=== PATIENT | female | born 1970 | race Hispanic/Latino ===

== ENCOUNTER 2017-08-05 18:58 | Emergency (ER) | payer BC ==
[2017-08-05 18:58] VITALS: BMI 24.3
[2017-08-05 19:24] VITALS: BP 124/90; PULSE 92; RESP 18; TEMP 98.3; O2SAT 97
--- NOTE | 2017-08-05 19:56 | C.PDOC ---
History Of Present Illness 46 y/o female presents to ED requesting ETOH detox stating "I need to stop drinking". Patient reports last used earlier today and denies suicidal ideation , homicidal ideation, hallucinations or any physical complaints at this time. Time Seen by Provider: 08/05/17 19:29 Chief Complaint (Nursing): Substance Abuse History Per: Patient History/Exam Limitations: no limitations Onset/Duration Of Symptoms: Days Current Symptoms Are (Timing): Still Present Suicide/Self Injury Attempted (Context): None Modifying Factor(s): Alcohol Past Medical History Reviewed: Historical Data, Nursing Documentation, Vital Signs Vital Signs: Last Vital Signs Temp 98.3 F 08/05/17 19:20 Pulse 92 H 08/05/17 19:20 Resp 18 08/05/17 19:20 BP 124/90 08/05/17 19:20 Pulse Ox 97 08/05/17 20:54 - Medical History PMH: Anxiety, Fractures (R ELBOW), HTN (pt reported her bp has been high due to drinking), Post Traumatic Stress Disorder Surgical History: No Surg Hx - [facility] Procedures ALCOHOL DETOXIFICATION (11/28/12) Family History: States: No Known Family Hx - Social History Hx Tobacco Use: Yes Hx Alcohol Use: Yes (wine/vodka) Hx Substance Use: No - Immunization History Hx Tetanus Toxoid Vaccination: No Hx Influenza Vaccination: Yes Hx Pneumococcal Vaccination: No Review Of Systems Constitutional: Negative for: Fever, Chills Cardiovascular: Negative for: Chest Pain, Palpitations Respiratory: Negative for: Shortness of Breath Gastrointestinal: Negative for: Nausea, Vomiting Skin: Negative for: Rash Psych: Negative for: Anxiety, Suicidal ideation Physical Exam - Physical Exam Appears: Non-toxic, No Acute Distress, Other (ETOH on breath, Tearful) Skin: Warm, Dry, No Rash Head: Atraumatic, Normacephalic Eye(s): bilateral: Normal Inspection, PERRL Oral Mucosa: Moist Neck: Normal ROM, Supple Cardiovascular: Rhythm Regular Respiratory: Normal Breath Sounds, No Rales, No Rhonchi, No Wheezing Gastrointestinal/Abdominal: Soft, No Tenderness, No Guarding, No Rebound Extremity: Normal ROM, Capillary Refill (<2 seconds), Other (mild tremors) Neurological/Psych: Oriented x3 Gait: Steady ED Course And Treatment O2 Sat by Pulse Oximetry: 97 (RA) Pulse Ox Interpretation: Normal Progress Note: Pt states she feels nervous and is requesting meds. pt appears anxious- h/o ofanxiety, states last drink was a few hrs ago. Librium PO ordered. 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 - Scribe Statement The provider has reviewed the documentation as recorded by the Scribkindra Payne All medical record entries made by the Scribe were at my direction and personally dictated by me. I have reviewed the chart and agree that the record accurately reflects my personal performance of the history, physical exam, medical decision making, and the department course for this patient. I have also personally directed, reviewed, and agree with the discharge instructions and disposition.
== END 2017-08-05 20:02 | disposition home or self-care (01) ==
LOC: SUPCPDRO 18:58 → C.ER 18:58
DX: F10.10 Alcohol abuse, uncomplicated (principal); Y90.9 Presence of alcohol in blood, level not specified